=== PATIENT | female | born 2000 | race Two or more races ===

== ENCOUNTER 2021-03-15 18:17 | Observation (INO) | payer OTHER ==
[2021-03-15] MEDS ORDERED: IV RINGERS,LACTATED 1000ML 1,000 ML IV SCH (19:15)
[2021-03-15 19:20] LABS: BILIRUBIN,URINE NEGATIVE (NEG); CLARITY,URINE CLEAR; COLOR,URINE YELLOW; NITRITE,URINE NEGATIVE (NEG); PROTEIN,URINE NEGATIVE (NEG-TRACE)
[2021-03-15 19:28] LABS: BARBITURATES NEG (NEG); BENZODIAZEPINES NEG (NEG); CANNABINOIDS NEG (NEG); COCAINE NEG (NEG); METHADONE NEG (NEG); OPIATES NEG (NEG); PHENCYCLIDINE NEG (NEG)
[2021-03-15 19:32] LABS: AMPHETAMINE/METHAMPHETAMINE NEG (NEG)
[2021-03-15 19:43] LABS: BACTERIA,URINE MANY /HPF (0-FEW)
[2021-03-15 19:44] LABS: WBC,URINE >40 /HPF (0-4)
[2021-03-15 19:46] LABS: RBC,URINE 0 /HPF (0-2)
[2021-03-23] MEDS ORDERED: IBUP-1060 PO (09:27)
[2021-03-23] MEDS ORDERED: FERR325T14 PO (09:27)
[2021-03-23] MEDS ORDERED: DOCU-109 PO (09:27)
[2021-03-23] MEDS ORDERED: NITR100C62 PO (09:27)
== END 2021-03-15 20:15 | disposition home or self-care (01) ==
LOC: 3 SO LND 18:17
PROVIDERS: ADMIT Obstetrics & Gynecology; ATTEND Obstetrics & Gynecology
DX: O62.9 Abnormality of forces of labor, unspecified (principal); O48.0 Post-term pregnancy; Z3A.40 40 weeks gestation of pregnancy
CPT/HCPCS: 59025; 80307; 81001; 87077; 87086; 87186; G0378; G0379